=== PATIENT | male | born 1960 | race American Indian/Alaskan Native ===

== ENCOUNTER 2018-01-19 23:40 | Emergency (ER) | payer SELFPAY ==
[~2018-01-19 23:40] MED LIST: ADRENALIN ONE
--- NOTE | 2018-01-20 00:43 | Emergency Department Report ---
ED CPR HPI - General Chief Complaint: Cardiac Arrest/CPR Stated Complaint: CARDIAC ARREST Time Seen by Provider: 01/20/18 00:12 Source: EMS Mode of arrival: Stretcher Limitations: Altered Mental Status - History of Present Illness Initial Comments: This is a 57-year-old male cancer patient who was apparently in his usual state of health today but did refuse food today, states that he became unresponsive, EMS arrived and CPR was engaged, patient was noted to be asystole , CPR and intubation was attempted, intubation was not successful in the field, the patient was being ventilated with bag mask, upon arrival to the ED the patient remained in asystole despite numerous rounds of epinephrine and chest compressions. MD Complaint: found unresponsive, stopped breathing -: minute(s) (30) Place: home Bystander CPR Performed: Yes AED Applied by Bystander/Mophead Trimmer And Wrapper: No Initial Findings in the Field: unresponsive, no respirations, no pulse Associated Symptoms: other (unknown) Treatments Prior to Arrival: BMV, chest compressions, epinephrine mgs # (3) - Related Data Allergies Allergy/AdvReac Type Severity Reaction Status Date / Time Unable to Assess Allergy Unverified 01/20/18 00:36 ED Review of Systems ROS: Stated complaint: CARDIAC ARREST Other details as noted in HPI Comment: Unobtainable due to pts medical conditions ED Physical Exam - General Limitations: Other (unresponsive) General appearance: other (unresponsive) - Head Head exam: Present: atraumatic - Eye Eye exam: Present: other (pupils are fixed and dilated) - ENT ENT exam: Present: other (large amount of dark bile-like liquid in the posterior pharynx, poor dentition) - Neck Neck exam: Present: normal inspection - Respiratory Respiratory exam: Present: other (no spontaneous respirations appreciated.) - Cardiovascular Cardiovascular Exam: Present: other (no heart sounds are appreciated, asystole on the monitor.) - GI/Abdominal GI/Abdominal exam: Present: soft. Absent: distended - Rectal Rectal exam: Present: deferred - Extremities Exam Extremities exam: Present: other (cachectic appearing male) - Back Exam Back exam: Present: normal inspection - Neurological Exam Neurological exam: Present: other (unresponsive) - Skin Skin exam: Present: other (cold to touch in the distal extremities) ED Course - Reevaluation(s) Reevaluation #1: 01/20/18 00:44 Chest compressions were continued in the emergency department. I was able to intubate the patient with a 7.0 cuffed ET tube. A large amount of bile-like fluid was suctioned from the posterior pharynx. Successful ET tube confirmation was obtained with the CO2 monitor and auscultation with breath sounds in both lung ramirez. Multiple rounds of epinephrine were given. The patient continued to be asystole on the monitor. We also checked for a pulse at regular intervals. No pulse was detected in the carotid region or femoral region. After roughly 25 minutes of active cardiopulmonary resuscitation, it was determined that the patient's total down time was almost 1 hour if not more , and the likelihood of resuscitating the patient at this point was unlikely. I discussed the case with the family members, particularly the , and explained the situation. She was appropriately upset at the situation. I explained that the patient did not have any spontaneous respirations and he was in asystole throughout the entire time here in the emergency department despite our best efforts. We pronounced the patient at 12:02 AM. I notified the family immediately afterwards. Critical care attestation.: If time is entered above; I have spent that time in minutes in the direct care of this critically ill patient, excluding procedure time. ED Disposition Clinical Impression: Cardiac arrest, Respiratory arrest Disposition: DC-20 Is pt being admited?: No Does the pt Need Aspirin: No Condition: Stable Referrals: TOBY ALBERTO MD [Primary Care Provider] - 3-5 Days
== END 2018-01-20 01:30 ==
LOC: ED 23:40
DX: I46.9 Cardiac arrest, cause unspecified (principal)
CPT/HCPCS: 99285; J0171